=== PATIENT | male | born 1995 ===

== ENCOUNTER 2018-09-18 11:00 | Emergency (ER) | payer OTHER ==
--- NOTE | 2018-09-18 11:32 | ED ---
General Adult HPI - General Chief complaint: Animal Bite Stated complaint: animal bite Time Seen by Provider: 09/18/18 11:08 Source: patient, RN notes reviewed Mode of arrival: ambulatory Limitations: no limitations - History of Present Illness Initial comments: 23-year-old male without any significant past medical history presents to the emergency department for a chief complaint of animal bite. Patient states just prior to arrival he was bitten by a squirrel in the right third digit. States his brother got into his house and he was trying to get it out. States it then bit him in the finger. States he is up-to-date on tetanus. Denies any other complaints at this time.Patient has no other complaints at this time including shortness of breath, chest pain, abdominal pain, nausea or vomiting, headache, or visual changes. - Related Data Previous Rx's Medication Instructions Recorded Amoxicillin/Potassium Clav 1 tab PO Q12HR #20 tab 09/18/18 [Augmentin 875-125 Tablet] Allergies Allergy/AdvReac Type Severity Reaction Status Date / Time No Known Allergies Allergy Verified 09/18/18 11:06 Review of Systems ROS Statement: Those systems with pertinent positive or pertinent negative responses have been documented in the HPI. ROS Other: All systems not noted in ROS Statement are negative. Past Medical History Past Medical History: No Reported History History of Any Multi-Drug Resistant Organisms: None Reported Past Surgical History: No Surgical Hx Reported Past Psychological History: No Psychological Hx Reported Smoking Status: Never smoker Past Alcohol Use History: Occasional Past Drug Use History: None Reported General Exam Limitations: no limitations General appearance: alert, in no apparent distress Head exam: Present: atraumatic, normocephalic, normal inspection Eye exam: Present: normal appearance, PERRL, EOMI. Absent: scleral icterus, conjunctival injection ENT exam: Present: normal exam, mucous membranes moist Neck exam: Present: normal inspection, full ROM. Absent: tenderness, meningismus, lymphadenopathy Respiratory exam: Present: normal lung sounds bilaterally. Absent: respiratory distress, wheezes, rales, rhonchi, stridor Cardiovascular Exam: Present: regular rate, normal rhythm, normal heart sounds. Absent: systolic murmur, diastolic murmur, rubs, gallop, clicks Extremities exam: Present: full ROM (Full range motion in the right third digit), normal capillary refill (Capillary refill less than 2 seconds in the right third digit), other (Small superficial laceration noted to the right third digit, full range motion in the right third digit). Absent: tenderness, pedal edema, joint swelling, calf tenderness Neurological exam: Present: alert, oriented X3, CN II-XII intact Psychiatric exam: Present: normal affect, normal mood Course Vital Signs 09/18/18 11:03 Temperature 98.5 F Pulse Rate 76 Respiratory 20 Rate Blood Pressure 108/73 O2 Sat by Pulse 99 Oximetry Medical Decision Making - Medical Decision Making 23-year-old male presents for a chief complaint of squirrel bite to the right third digit. Full range of motion. No deep lacerations. X-ray negative for foreign body. Patient is already up-to-date on tetanus. [facility] does not recommend postexposure prophylaxis for rabies in squirrels so patient will not be given rabies vaccines. Patient will be started on Augmentin. Will follow up with primary care 1-2 days or return here if he has any worsening symptoms. Disposition Clinical Impression: Bite by animal Disposition: HOME SELF-CARE Condition: Good Instructions (If sedation given, give patient instructions): Animal Bite (ED) Additional Instructions: Please take Augmentin as directed. Monitor for signs of infection such as spreading or streaking redness and return if this occurs. Follow-up with primary care in 1-2 days. Return here if you have any worsening symptoms. Prescriptions: Amoxicillin/Potassium Clav [Augmentin 875-125 Tablet] 1 tab PO Q12HR #20 tab Is patient prescribed a controlled substance at d/c from ED?: No Referrals: Harjeet Kowalski MD [REFERRING] - 1-2 days Time of Disposition: 11:34
--- NOTE | 2018-09-18 11:42 | XR ---
Third digit right hand HISTORY: Penetrating trauma, animal bite 3 views of the third digit of the right hand There is no radiopaque foreign body. No fracture or dislocation. Bone mineralization and alignment ar e maintained. IMPRESSION: Negative exam
[2018-09-18 12:33] VITALS: BP 110/78; PULSE 78; RESP 18; TEMP 98.4
== END 2018-09-18 12:00 | disposition home or self-care (01) ==
LOC: EC 11:00
DX: S61.252A Open bite of right middle finger without damage to nail, initial encounter (principal); W53.21XA Bitten by squirrel, initial encounter; Y92.009 Unspecified place in unspecified non-institutional (private) residence as the place of occurrence of the external cause
CPT/HCPCS: 99283